=== PATIENT | male | born 1970 | race Caucasian/White ===

== ENCOUNTER 2021-01-14 19:02 | Emergency (ER) | payer MEDICAID ==
[~2021-01-14] VITALS: Ht 175.3 cm; Wt 84.8 kg
[2021-01-14 19:05] VITALS: BP 101/60
[2021-01-14 20:28] LABS: BASOPHILS % (AUTO) 0.2 % (0.0-2.0); EOSINOPHILS # (AUTO) 0.2 K/uL (0-0.4); EOSINOPHILS % (AUTO) 1.7 % (0.0-4.0); HEMATOCRIT 44.2 % (36-52); HEMOGLOBIN 15.5 g/dL (12.0-18.0); LYMPHOCYTES # (AUTO) 1.3 K/uL (2.0-11.5); MEAN CORPUSCULAR HEMOGLOBIN 32 pg (27-31); MEAN CORPUSCULAR HGB CONC 35 g/dL (33-37); MEAN CORPUSCULAR VOLUME 90.8 fL (80-94); MONOCYTES # (AUTO) 0.8 K/uL (0.8-1.0); MONOCYTES % (AUTO) 7.4 % (1.7-9.3); NEUTROPHILS # (AUTO) 8.8 K/uL (1.8-7.7); NEUTROPHILS % (AUTO) 78.7 % (42.2-75.2); PLATELET COUNT (AUTO) 201 K/uL (140-450); RED BLOOD CELL COUNT(AUTO) 4.86 MIL/uL (4.20-6.10); RED CELL DISTRIBUTION WIDTH 13.3 % (11.6-13.7); WHITE BLOOD COUNT (AUTO) 11.1 K/uL (4.8-10.8)
[2021-01-14 20:50] LABS: ALBUMIN 3.6 g/dL (3.4-5.0); ANION GAP 16.6 (8-16); CARBON DIOXIDE 24.9 mmol/L (21-32); CREATININE 0.9 mg/dL (0.6-1.3); POTASSIUM 3.5 mmol/L (3.5-5.1); TOTAL BILIRUBIN 0.6 mg/dL (0.0-1.0)
[2021-01-14 21:02] LABS: PROTHROMBIN TIME 9.6 secs (10.8-13.4)
--- NOTE | 2021-01-14 22:12 | NUR ---
PATIENT WHEELED TO BED 8
--- NOTE | 2021-01-14 23:00 | NUR ---
PT IS A 50 Y/O MALE WITH C/O OF BILATERAL FOOT PAIN. PT IS USING A WHEELCHAIR. PT SAYS HES BEEN IN PAIN FOR 2 MONTHS WHEN HE GOT SUREGERY FOR HIS FOOT. PT STATES HE HURT HIS FOOT AT WORK. PT DENIES F/N/V/DIRRHEA/SOB/ ALOC/ CHEST PAIN. PT IS [id number] AND IS ABLE TO GET AROUND IN HIS WHEELCHAIR. PT CAP REFILL ON BOTH FEET WAS 4 SECONDS. PT WAS ABLE TO WIGGLE TOES AND FEEL SENSATION. MILD WEAKNESS DUE TO CAST.
[2021-01-14] MEDS ORDERED: ACET-10509 PO (23:42)
--- NOTE | 2021-01-14 23:50 | NUR ---
PT SITTING IN WHEELCHAIR
[2021-01-15 00:30] VITALS: BP 142/86
== END 2021-01-15 00:30 | disposition home or self-care (01) ==
LOC: MED 19:02
DX: M79.671 Pain in right foot (principal); M79.672 Pain in left foot; Z79.899 Other long term (current) drug therapy; Z98.890 Other specified postprocedural states
CPT/HCPCS: 36415; 73630; 80053; 83605; 85025; 85610; 85651; 85730; 86140; 99284